=== PATIENT | female | born 1965 | race Caucasian/White ===

== ENCOUNTER 2017-05-23 16:43 | Emergency (ER) | payer OTHER ==
[2017-05-23 16:56] VITALS: TEMP 98.3; BMI 29.2
[2017-05-23] MEDS ORDERED: ASPIRIN 81 MG CHEWABLE TABLETS PO ONE (16:57)
--- NOTE | 2017-05-23 16:59 | PDOC ---
Rapid Medical Evaluation Time Seen by Provider: 05/23/17 16:46 Medical Evaluation: Allergies Allergy/AdvReac Type Severity Reaction Status Date / Time No Known Allergies Allergy Verified 08/23/15 11:33 05/23/17 16:51 I have performed a brief in-person evaluation of this patient. The patient presents with a chief complaint of: pain to left upper back x 2 months, today with chest pain 4 days with SOB, worse with respiration, no meds Pertinent physical exam findings: lungs ctab I have ordered the following: EKG, CXR, labs The patient will proceed to the ED for further evaluation.
--- NOTE | 2017-05-23 17:12 | PDOC ---
Attending Attestation - Resident Resident Name: Lukas Alvarez - ED Attending Attestation I have performed the following: I have examined & evaluated the patient, The case was reviewed & discussed with the resident, I agree w/resident's findings & plan, Exceptions are as noted - Medical Decision Making 05/23/17 17:12 I, Dr. Flor Swain, DO, attest that this document has been prepared under my direction and personally reviewed by me in its entirety. I further attest, that it accurately reflects all work, treatment, procedures and medical decision -making performed by me. 05/23/17 20:10 a/p: 51yo female with anterior chest wall pain and pain at rhomboid -also cocnerned for lesions to vagina - hx of herpes -will obtain labs, cxr, ekg -will do pelvic exam 05/23/17 20:10 elevated dimer will obtain cta chest <Flor Swain - Last Filed: 05/23/17 20:09> - HPI HPI: 05/23/17 21:32 Patient is a 51 year old female with a significant past medical history of hepatic infection genital region sores for 6 months, who presents to the ED with complaints of left shoulder pain that began 2 months ago. Patient reports experiencing chronic left shoulder pain that recently began to increase in intensity prompting her to come in to the ED for evaluation. She reports experiencing intermittent left chest pain that began 4 days ago that she states , is a pressured 8/10 pain. Patient reports experiencing dysuria, and urinary frequency. Denies fevers, chills. Denies nausea, vomiting. Denies contact with sick individuals, out of state travelling. Denies any other symptoms. Allergies: None Social history: No smoking. No alcohol. No illicit drugs. Surgical history: Hernia PMD: None - Physicial Exam PE: 05/23/17 21:33 GENERAL: Awake, alert, and fully oriented, in no acute distress HEAD: No signs of trauma EYES: PERRLA, EOMI, sclera anicteric, conjunctiva clear ENT: Auricles normal inspection, hearing grossly normal, nares patent, oropharynx clear without exudates. Moist mucosa NECK: Normal ROM, supple, no lymphadenopathy, JVD, or masses LUNGS: Breath sounds equal, clear to auscultation bilaterally. No wheezes, and no crackles HEART: +Anterior chest wall discomfort, reproduced with palpation. Regular rate and rhythm, normal S1 and S2, no murmurs, rubs or gallops MUSCULOSKELETAL: +Left rhomboid pin point pain. ABDOMEN: Soft, nontender, normoactive bowel sounds. No guarding, no rebound. No masses EXTREMITIES: +Full upper extremity ROM. Normal range of motion, no edema. No clubbing or cyanosis. No cords, erythema, or tenderness NEUROLOGICAL: Cranial nerves II through XII grossly intact. Normal speech, normal gait SKIN: Warm, Dry, normal turgor, no rashes or lesions noted. - Medical Decision Making 05/23/17 21:33 Documentation prepared by Eric Goldsmith, acting as medical field representative for Flor Swain DO, MD/. <Eric Goldsmith - Last Filed: 05/23/17 21:33> Heart Score/ECG Review - ECG Intrepretation Comment:: 05/23/17 17:35 sinus at 80, nl axis, nl interval, t wave flattening diffusely, no acute changes <Flor Swain - Last Filed: 05/23/17 20:09>
--- NOTE | 2017-05-23 17:20 | PDOC ---
History of Present Illness - General Chief Complaint: Chest Pain Stated Complaint: CHEST PAIN Time Seen by Provider: 05/23/17 16:46 - History of Present Illness Initial Comments: 05/23/17 17:32 Ms. Tee is a 51 yo female w/ no pmh of presents c/o a 2 month history of left shoulder pain and a 4 day history of intermittent 8/10 left chest pain. She reports that her pain initially came and went and felt like a pressure with episodes of sweating and palpitations but that yesterday it became constant. She is here today to get checked out. She also endorses dyrusria with increased frequency. The patient denies headache and dizziness. Denies fever, chills, nausea, vomit, diarrhea and constipation. Past History - Past Medical History Allergies/Adverse Reactions: Allergies Allergy/AdvReac Type Severity Reaction Status Date / Time No Known Allergies Allergy Verified 05/23/17 16:56 Home Medications: Ambulatory Orders Valacyclovir HCl [Valtrex] 500 mg PO QID #3 tablet 05/23/17 Anemia: No Asthma: No Cancer: No Cardiac Disorders: No CVA: No COPD: No CHF: No Dementia: No Diabetes: No GI Disorders: No Disorders: No HTN: No Hypercholesterolemia: No Liver Disease: No Seizures: No Thyroid Disease: No - Surgical History Abdominal Surgery: Yes (HERNIA: 2008) Appendectomy: No Cardiac Surgery: No Cholecystectomy: No Lung Surgery: No Neurologic Surgery: No Orthopedic Surgery: No - Immunization History Immunization Up to Date: Yes - Suicide/Smoking/Psychosocial Hx Smoking Status: No Smoking History: Never smoked Have you smoked in the past 12 months: No Number of Cigarettes Smoked Daily: 0 Hx Alcohol Use: No Drug/Substance Use Hx: No Substance Use Type: None Review of Systems - Review of Systems Comments:: 05/23/17 17:37 GENERAL/CONSTITUTIONAL: No fever or chills. No weakness. HEAD, EYES, EARS, NOSE AND THROAT: No change in vision. No ear pain or discharge. No sore throat. CARDIOVASCULAR: +Pain on right chest that has changed from intermittent to constant over the last 4 days. 8/10. Also pressure with palpitation episodes RESPIRATORY: No cough, wheezing, or hemoptysis. GASTROINTESTINAL: No nausea, vomiting, diarrhea or constipation. GENITOURINARY: +Dysuria with urinary frequency MUSCULOSKELETAL: No joint or muscle swelling or pain. No neck or back pain. SKIN: No rash NEUROLOGIC: No headache, vertigo, loss of consciousness, or change in strength/ sensation. ENDOCRINE: No increased thirst. No abnormal weight change HEMATOLOGIC/LYMPHATIC: No anemia, easy bleeding, or history of blood clots. ALLERGIC/IMMUNOLOGIC: No hives or skin allergy. *Physical Exam - Vital Signs Last Vital Signs Temp Pulse Resp BP Pulse Ox 98.3 F 88 20 121/86 100 05/23/17 16:51 05/23/17 16:51 05/23/17 16:51 05/23/17 16:51 05/23/17 16:51 - Physical Exam Comments: 05/23/17 17:40 GENERAL: Awake, alert, and fully oriented, in no acute distress HEAD: No signs of trauma, normocephalic, atraumatic EYES: PERRLA, EOMI, sclera anicteric, conjunctiva clear ENT: Auricles normal inspection, hearing grossly normal, nares patent, oropharynx clear without exudates. Moist mucosa NECK: Normal ROM, supple, no lymphadenopathy, JVD, or masses LUNGS: No distress, speaks full sentences, clear to auscultation bilaterally HEART: Regular rate and rhythm, normal S1 and S2, no murmurs, rubs or gallops, peripheral pulses normal and equal bilaterally. ABDOMEN: Soft, nontender, normoactive bowel sounds. No guarding, no rebound. No masses EXTREMITIES: +Left shoulder TTP. NEUROLOGICAL: Cranial nerves II through XII grossly intact. Normal speech, normal gait, no focal sensorimotor deficits SKIN: Warm, Dry, normal turgor, no rashes or lesions noted. : No CMT, no masses appreciated. Generalized pelvic tenderness noted. ED Treatment Course - LABORATORY CBC & Chemistry Diagram: 05/23/17 17:37 05/23/17 17:37 Medical Decision Making - Medical Decision Making 05/23/17 18:01 Ms. Tee is a 51 yo female who presents w/ symptoms concerning for acute cardiac process. Patient on further interview admitted to a pmh of herpes as well with active lesions. Reports that she has been out of medications for 7 months. 05/23/17 18:44 D-dimer positive. Chest CTA ordered for PE r/o. 05/23/17 20:25 No active herpetic lesions noted. Valtrex 500 given for recurrence. Will refer to [facility] for follow-up and continued treatment. Discharge pending CTA. 05/23/17 20:57 CTA negative for acute PE. Discharging. *DC/Admit/Observation/Transfer Diagnosis at time of Disposition: Herpes, Anterior chest wall pain, Musculoskeletal back pain - Discharge Dispostion Disposition: HOME - Prescriptions Prescriptions: Valacyclovir HCl [Valtrex] 500 mg PO QID #3 tablet - Referrals Referrals: Nivia López MD [Staff Physician] - - Patient Instructions Printed Discharge Instructions: DI for Atypical Chest Pain Additional Instructions: Follow-up with [facility] within 1-2 days for further evaluation. Return if any increase in pain, fever, or other concerning symptoms. - Post Discharge Activity
[2017-05-23 17:39] LABS: BASO % 1.1 % (0-2.0); EOS % 1.6 % (0-4.5); HEMATOCRIT 39.4 % (32.4-45.2); HEMOGLOBIN 13.8 GM/dL (10.7-15.3); LYMPH % 44.2 % (8-40); MCH 30.7 pg (25.7-33.7); MEAN CELL VOLUME 87.7 fl (80-96); MEAN PLT VOLUME 8.3 fl (7.5-11.1); MONO % 6.6 % (3.8-10.2); NEUT % 46.5 % (42.8-82.8); PLATELET COUNT 270 K/MM3 (134-434); RBC 4.49 M/mm3 (3.60-5.2); RDW 13.8 % (11.6-15.6); WHITE BLOOD COUNT 8.2 K/mm3 (4.0-10.0)
[2017-05-23 17:49] LABS: URINE APPEARANCE CLEAR; URINE BILIRUBIN NEGATIVE (NEGATIVE); URINE BLOOD NEGATIVE (NEGATIVE); URINE COLOR STRAW; URINE GLUCOSE (UA) NEGATIVE (NEGATIVE); URINE KETONE NEGATIVE (NEGATIVE); URINE LEUK ESTERASE NEGATIVE (NEGATIVE); URINE NITRITE NEGATIVE (NEGATIVE); URINE PROTEIN NEGATIVE (NEGATIVE); URINE UROBILINOGEN NEGATIVE mg/dL (0.2-1.0)
[2017-05-23 18:03] LABS: INR 1.05 (0.82-1.09); PROTHROMBIN TIME (PATIENT) 11.9 SEC (9.98-11.88)
[2017-05-23 18:13] LABS: ALBUMIN 3.8 g/dl (3.4-5.0); ANION GAP 11 (8-16); BILIRUBIN,TOTAL 0.4 mg/dL (0.2-1.0); BLOOD UREA NITROGEN 22 mg/dL (7-18); CALCIUM 8.8 mg/dL (8.5-10.1); CHLORIDE 108 mmol/L (98-107); CO2 20 mmol/L (21-32); CREATININE 1.1 mg/dL (0.55-1.02); GLUCOSE,RANDOM 135 mg/dL (74-106); SODIUM 139 mmol/L (136-145); TOT PROT 7.2 g/dl (6.4-8.2)
[2017-05-23 18:20] LABS: ALK PHOS 72 U/L (45-117); SGPT/ALT 22 U/L (12-78)
[2017-05-23 18:23] LABS: POTASSIUM 3.5 mmol/L (3.5-5.1); SGOT/AST 16 U/L (15-37)
[2017-05-23] MEDS ORDERED: SODIUM CHLORIDE 0.9% 1000 ML INFUS.BAG IV ONE (18:42)
[2017-05-23] MEDS ORDERED: SODIUM CHLORIDE 1,000 ML IV STA (18:42)
[2017-05-23 18:56] VITALS: BP 121/74; PULSE 80
[2017-05-23] MEDS ORDERED: valACYclovir HCL 500 MG TABLET (FP) PO ONE (20:23)
--- NOTE | 2017-05-24 09:11 | EKG ---
Test Reason : Blood Pressure : / mmHG Vent. Rate : 080 BPM Atrial Rate : 080 BPM P-R Int : 158 ms QRS Dur : 068 ms QT Int : 370 ms P-R-T Axes : 048 030 053 degrees QTc Int : 426 ms NORMAL SINUS RHYTHM NONSPECIFIC T WAVE ABNORMALITY ABNORMAL ECG WHEN COMPARED WITH ECG OF 20-JAN-2013 10:30, NO SIGNIFICANT CHANGE WAS FOUND Confirmed by RADHA CHUA MD ([id number]) on 05/24/2017 9:10:59 AM Referred By: Confirmed By:RADHA CHUA MD
== END 2017-05-23 21:24 | disposition home or self-care (01) ==
LOC: JER 16:43
PROC: 3E0337Z Introduction of Electrolytic and Water Balance Substance into Peripheral Vein, Percutaneous Approach (ICD-10-PCS; principal; 2017-05-23)
DX: R07.89 Other chest pain (principal); B00.9 Herpesviral infection, unspecified
CPT/HCPCS: 36415; 71046-TC; 71275-TC; 80053; 81003; 82550; 83735; 84484; 84703; 85025; 85379; 85610; 87086; 93005; 93010; 99284-25

== ENCOUNTER 2017-10-09 19:54 | Emergency (ER) | payer OTHER ==
[2017-10-09 20:09] VITALS: BP 106/67; PULSE 58; TEMP 98.4; BMI 30.2
--- NOTE | 2017-10-09 20:56 | PDOC ---
History of Present Illness - General Chief Complaint: Pain Stated Complaint: PAIN Time Seen by Provider: 10/09/17 20:51 - History of Present Illness Initial Comments: 51-year-old female presents for evaluation of right ankle pain 1 month after she banged it into a piece of furniture. No prior issues with the right ankle no comorbidities no ALLERGIES to medication. She has pain with ambulation. She points to the lateral aspect of the right ankle as the area of her discomfort. 10/09/17 20:54 Past History - Past Medical History Allergies/Adverse Reactions: Allergies Allergy/AdvReac Type Severity Reaction Status Date / Time No Known Allergies Allergy Verified 10/09/17 20:03 Home Medications: Ambulatory Orders NK [No Known Home Medication] 10/09/17 Anemia: No Asthma: No Cancer: No Cardiac Disorders: No CVA: No COPD: No CHF: No Dementia: No Diabetes: No GI Disorders: No Disorders: No HTN: No Hypercholesterolemia: No Liver Disease: No Seizures: No Thyroid Disease: No - Surgical History Abdominal Surgery: Yes (HERNIA: 2008) Appendectomy: No Cardiac Surgery: No Cholecystectomy: No Lung Surgery: No Neurologic Surgery: No Orthopedic Surgery: No - Immunization History Immunization Up to Date: Yes - Suicide/Smoking/Psychosocial Hx Smoking Status: No Smoking History: Never smoked Have you smoked in the past 12 months: No Number of Cigarettes Smoked Daily: 0 Hx Alcohol Use: No Drug/Substance Use Hx: No Substance Use Type: None Review of Systems - Review of Systems Musculoskeletal: Yes: Joint Pain All Other Systems: Reviewed and Negative *Physical Exam - Vital Signs Last Vital Signs Temp Pulse Resp BP Pulse Ox 98.4 F 58 L 18 106/67 100 10/09/17 20:03 10/09/17 20:03 10/09/17 20:03 10/09/17 20:03 10/09/17 20:03 - Physical Exam Comments: Right ankle skin color and temperature within normal limits there is no swelling mildly decreased range of motion in plantar and dorsiflexion tenderness about the lateral malleolus without instability no gross sensorimotor deficits she's neurovascularly intact. 10/09/17 20:55 ED Treatment Course - RADIOLOGY Radiology Studies Ordered: Category Date Time Status ANKLE-RIGHT [RAD] Stat Radiology 10/09/17 20:54 Ordered Medical Decision Making - Medical Decision Making This is most likely a right ankle contusion I will get x-rays to evaluate for fracture. 10/09/17 20:56 10/09/17 21:24 X-rays of the right ankle have been reviewed and show no evidence of fracture trauma or destructive process this is ankle contusion. She may follow-up with orthopedics for further evaluation and treatment options. *DC/Admit/Observation/Transfer Diagnosis at time of Disposition: Contusion, ankle - Discharge Dispostion Disposition: HOME Condition at time of disposition: Stable Decision to Admit order: No - Referrals Referrals: Gilbert Marcelo MD [Staff Physician] - - Patient Instructions Printed Discharge Instructions: Contusion Additional Instructions: He may return to the emergency room if your symptoms worsen or go unresolved prior to follow-up with orthopedic surgery within the next 1-2 days. He may follow-up with orthopedic surgery for further evaluation and treatment options. He may take Tylenol and Motrin for pain as needed. - Post Discharge Activity
== END 2017-10-09 22:17 | disposition home or self-care (01) ==
LOC: JERFT 19:54
DX: S90.01XA Contusion of right ankle, initial encounter (principal); W22.03XA Walked into furniture, initial encounter; Y93.89 Activity, other specified; Y92.038 Other place in apartment as the place of occurrence of the external cause; Y99.8 Other external cause status
CPT/HCPCS: 73610-TC-RT-FY; 99281-25

== ENCOUNTER 2018-02-25 19:32 | Emergency (ER) | payer OTHER ==
[2018-02-25 19:43] VITALS: BP 135/85; PULSE 86; TEMP 98.3; BMI 28.3
--- NOTE | 2018-02-25 19:44 | PDOC ---
Rapid Medical Evaluation Chief Complaint: Eye Problem Time Seen by Provider: 02/25/18 19:41 Medical Evaluation: Allergies Allergy/AdvReac Type Severity Reaction Status Date / Time No Known Allergies Allergy Verified 10/09/17 20:03 02/25/18 19:42 I have performed a brief in person evaluation of this patient. The patient presents with a chief complaint of: left eye erythema and pain x 1 day. Denies taking antipyretics or anticoagulants. Pertinent PE: Skin: Clear HEENT: pt has subconjunctival hemorrhage to the right inner canthus. Lungs: Clear Heart: RRR MS: Moves all extremities Neuro: Alert and oriented Psych: Appropriate affect The patient will proceed to: pt will go to [facility] for further evaluation. Discharge Disposition - Diagnosis Eye anomaly - Referrals - Patient Instructions - Post Discharge Activity
--- NOTE | 2018-02-25 21:46 | PDOC ---
History of Present Illness - General Chief Complaint: Eye Problem Stated Complaint: Eye Problem Time Seen by Provider: 02/25/18 19:41 - History of Present Illness Initial Comments: 02/25/18 21:44 52-year-old female without comorbidities presents for evaluation of right eye irritation times one day. She has no associated symptoms. Past History - Past Medical History Allergies/Adverse Reactions: Allergies Allergy/AdvReac Type Severity Reaction Status Date / Time No Known Allergies Allergy Verified 02/25/18 19:43 Home Medications: Ambulatory Orders NK [No Known Home Medication] 10/09/17 Anemia: No Asthma: No Cancer: No Cardiac Disorders: No CVA: No COPD: No CHF: No Dementia: No Diabetes: No GI Disorders: No Disorders: No HTN: No Hypercholesterolemia: No Liver Disease: No Seizures: No Thyroid Disease: No - Surgical History Abdominal Surgery: Yes (HERNIA: 2008) Appendectomy: No Cardiac Surgery: No Cholecystectomy: No Lung Surgery: No Neurologic Surgery: No Orthopedic Surgery: No - Immunization History Immunization Up to Date: Yes - Suicide/Smoking/Psychosocial Hx Smoking Status: No Smoking History: Never smoked Have you smoked in the past 12 months: No Number of Cigarettes Smoked Daily: 0 Hx Alcohol Use: No Drug/Substance Use Hx: No Substance Use Type: None Review of Systems - Review of Systems HEENTM: Yes: See HPI All Other Systems: Reviewed and Negative *Physical Exam - Vital Signs Last Vital Signs Temp Pulse Resp BP Pulse Ox 98.3 F 86 18 135/85 100 02/25/18 19:41 02/25/18 19:41 02/25/18 19:41 02/25/18 19:41 02/25/18 19:41 - Physical Exam Comments: HEAD: NC/AT EYES: Conjuntiva clear left eye, is a subconjunctival hemorrhage in the right eye.EOMI, PERRL Ears: Canals and TM's normal NOSE: No d/c THROAT: Moist mucous membrances, oral pharanx clear, uvula midline NECK: Supple without adenopathy CARDIAC: S1 S2 LUNGS: CTA Full and Equal breath sounds ABDOMEN: Soft NT ND MS: Full ROM in all joints without edema NEUROLOGIC: No gross sensory or motor deficits, NVID SKIN: Normal color and temperature no lesions or rashes 02/25/18 21:44 Medical Decision Making - Medical Decision Making Patient is not on any anticoagulation, subconjunctival hemorrhage will resolve on its own. I will give ophthalmology follow-up for reassurance and further evaluation and treatment options. 02/25/18 21:45 *DC/Admit/Observation/Transfer Diagnosis at time of Disposition: Subconjunctival bleed Diagnosis at time of Disposition: (Ruled Out): Eye anomaly - Discharge Dispostion Disposition: HOME Condition at time of disposition: Stable Decision to Admit order: No - Referrals Referrals: Tyler Wayne MD [Primary Care Provider] - Goldie Haynes MD [Staff Physician] - - Patient Instructions Printed Discharge Instructions: DI for Subconjunctival Hemorrhage Additional Instructions: Please follow up with ophthalmology in one to 2 days for further evaluation and treatment options return to the emergency room should symptoms worsen or go unresolved. There is nothing to do or drops to put in your right eye. - Post Discharge Activity
== END 2018-02-25 21:48 | disposition home or self-care (01) ==
LOC: JERFT 19:32
DX: H11.32 Conjunctival hemorrhage, left eye (principal)
CPT/HCPCS: 99281-25

== ENCOUNTER 2019-12-12 20:25 | Emergency (ER) | payer OTHER ==
[2019-12-12 20:34] VITALS: BP 139/84; PULSE 75; TEMP 97.3; BMI 33.2
[2019-12-12 20:54] LABS: BASO % 1.1 % (0-2.0); EOS % 1.3 % (0-4.5); HEMATOCRIT 39.8 % (32.4-45.2); HEMOGLOBIN 13.7 GM/dL (10.7-15.3); LYMPH % 45.5 % (8-40); MCHC 34.3 g/dl (32.0-36.0); MEAN CELL VOLUME 90.3 fl (80-96); MEAN PLT VOLUME 8.4 fl (7.5-11.1); MONO % 8.4 % (3.8-10.2); NEUT % 43.7 % (42.8-82.8); PLATELET COUNT 248 K/MM3 (134-434); WHITE BLOOD COUNT 8.5 K/mm3 (4.0-10.0)
--- NOTE | 2019-12-12 21:12 | PDOC ---
Rapid Medical Evaluation Chief Complaint: Headache Time Seen by Provider: 12/12/19 20:33 Medical Evaluation: Allergies Allergy/AdvReac Type Severity Reaction Status Date / Time No Known Allergies Allergy Verified 12/12/19 20:34 Vital Signs Temp Pulse Resp BP Pulse Ox 97.3 F L 75 18 139/84 99 12/12/19 20:28 12/12/19 20:28 12/12/19 20:28 12/12/19 20:28 12/12/19 20:28 12/12/19 20:36 I have performed a brief in-person evaluation of this patient. The patient presents with a chief complaint of:baugh and sob x months Pertinent physical exam findings:looks well, stable I have ordered the following:labs The patient will proceed to the ED for further evaluation. Discharge Disposition - Diagnosis SOB (shortness of breath) Headache Qualifiers: Headache type: unspecified Headache chronicity pattern: unspecified pattern Intractability: not intractable Qualified Code(s): R51 - Headache - Referrals - Patient Instructions - Post Discharge Activity
[2019-12-12 21:13] LABS: EPI CELLS 2 /uL (0-25.1); HYALINE CASTS 0 /uL (0-3.1); URINE APPEARANCE CLEAR; URINE BACTERIA 20 /uL (0-1359); URINE BILIRUBIN NEGATIVE (NEGATIVE); URINE COLOR YELLOW; URINE GLUCOSE (UA) NEGATIVE (NEGATIVE); URINE KETONE NEGATIVE (NEGATIVE); URINE LEUK ESTERASE NEGATIVE (NEGATIVE); URINE NITRITE NEGATIVE (NEGATIVE); URINE PROTEIN NEGATIVE (NEGATIVE); URINE RBC 11 /uL (0-23.9); URINE UROBILINOGEN 0.2 mg/dL (0.2-1.0); URINE WBC 5 /uL (0-25.8)
[2019-12-12 21:27] LABS: ALK PHOS 77 U/L (45-117); ANION GAP 7 MMOL/L (8-16); BILIRUBIN,TOTAL 0.3 mg/dL (0.2-1); BLOOD UREA NITROGEN 21.4 mg/dL (7-18); CALCIUM 9.5 mg/dL (8.5-10.1); CHLORIDE 110 mmol/L (98-107); CO2 23 mmol/L (21-32); CREATININE 1.1 mg/dL (0.55-1.3); GLUCOSE,RANDOM 116 mg/dL (74-106); POTASSIUM 4.2 mmol/L (3.5-5.1); SGOT/AST 20 U/L (15-37); SGPT/ALT 23 U/L (13-61); SODIUM 140 mmol/L (136-145); TOT PROT 7.5 g/dl (6.4-8.2)
--- NOTE | 2019-12-12 21:47 | PDOC ---
History of Present Illness - General Chief Complaint: Headache Stated Complaint: HEADACHE Time Seen by Provider: 12/12/19 20:33 Past History - Medical History Allergies/Adverse Reactions: Allergies Allergy/AdvReac Type Severity Reaction Status Date / Time No Known Allergies Allergy Verified 12/12/19 20:34 Home Medications: Ambulatory Orders NK [No Known Home Medication] 10/09/17 Anemia: No Asthma: No Cancer: No Cardiac Disorders: No CVA: No COPD: No CHF: No Dementia: No Diabetes: Yes (pre diabetes) GI Disorders: No Disorders: No HTN: No Hypercholesterolemia: No Liver Disease: No Seizures: No Thyroid Disease: No - Surgical History Abdominal Surgery: Yes (HERNIA: 2007) Appendectomy: No Cardiac Surgery: No Cholecystectomy: No Lung Surgery: No Neurologic Surgery: No Orthopedic Surgery: No - Immunization History Immunization Up to Date: Yes - Psycho-Social/Smoking History Smoking Status: No Smoking History: Never smoked Have you smoked in the past 12 months: No Number of Cigarettes Smoked Daily: 0 - Substance Abuse Hx (Audit-C & DAST Scrn) How often the patient has a drink containing alcohol: Never Score: In Men: 4 or > Positive; In Women: 3 or > Positive: 0 Screen Result (Pos requires Nsg. Audit-10AR): Negative *Physical Exam - Vital Signs Last Vital Signs Temp Pulse Resp BP Pulse Ox 97.3 F L 75 18 139/84 99 12/12/19 20:28 12/12/19 20:28 12/12/19 20:28 12/12/19 20:28 12/12/19 20:28 ED Treatment Course - LABORATORY CBC & Chemistry Diagram: 12/12/19 20:44 12/12/19 20:44 - ADDITIONAL ORDERS Additional order review: Laboratory Results 12/12/19 12/12/19 20:44 20:44 Sodium 140 Potassium 4.2 Chloride 110 H Carbon Dioxide 23 Anion Gap 7 L BUN 21.4 H Creatinine 1.1 Est GFR (CKD-EPI)AfAm 66.85 Est GFR (CKD-EPI)NonAf 57.68 Random Glucose 116 H Calcium 9.5 Total Bilirubin 0.3 AST 20 ALT 23 Alkaline Phosphatase 77 Total Protein 7.5 Albumin 4.0 Urine Color Yellow Urine Appearance Clear Urine pH 8.0 D Ur Specific [place] 1.005 L Urine Protein Negative Urine Glucose (UA) Negative Urine Ketones Negative Urine Blood 1+ H Urine Nitrite Negative Urine Bilirubin Negative Urine Urobilinogen 0.2 Ur Leukocyte Esterase Negative Urine WBC (Auto) 5 Urine RBC (Auto) 11 Urine Casts (Auto) 0 U Epithel Cells (Auto) 2 Urine Bacteria (Auto) 20 12/12/19 20:44 RBC 4.40 MCV 90.3 MCHC 34.3 RDW 13.0 MPV 8.4 Neutrophils % 43.7 Lymphocytes % 45.5 H Monocytes % 8.4 Eosinophils % 1.3 Basophils % 1.1 Medical Decision Making - Medical Decision Making 12/12/19 21:51 HPI: 53yo F no PMH presents from home c/o 3 weeks of worsening headache and chest pressure. Headache gradual onset whole head and back of neck worse at night, better in AM, worsening, not improved with tylenol x3 today. Intermittent chest pressure L-sided nonradiating pleuritic associated with SOB sometimes exertional sometimes at rest. Endorses 3wks dysuria, urinary frequency, intermittent nausea, intermittent blurry vision, fatigue and generalized weakness. Endorses chronic >1yr intermit tent LLQ pain. Denies sick contacts, travel, abdominal surgeries, D/C, vomiting, F/C, numbness/tingling, focal weakness, difficulty walking or talking, hx lung or heart problems, meds, FHx early CAD, alcohol, smoking, drugs, neck stiffness. ROS: Constitutional: Positive for fatigue and generalized weakness. Negative for chills, fever, diaphoresis. HENT: Negative for sore throat, rhinorrhea, congestion. Eyes: Positive for blurry vision. Negative for diplopia, photophobia, vision field loss. Respiratory: Positive for SOB. Negative for cough, and wheezing. Cardiovascular: Positive for chest pain. Negative for palpitations, and leg swelling. Gastrointestinal: Positive for abdominal pain, nausea. Negative for blood in stool, constipation, diarrhea, and vomiting. Genitourinary: Positive for dysuria, urinary frequency. Negative for flank pain, and hematuria. Musculoskeletal: Positive for back of neck pain. Negative for myalgias, back pain. Skin: Negative for rash. Neurological: Positive for headache. Negative for light-headedness, dizziness, vertigo, syncope, weakness, numbness. Psychiatric/Behavioral: Negative for behavioral problems and confusion. PE: Gen: Alert, NAD, comfortable-appearing. HEENT: PERRL, EOMI, MMM, NCAT. No conjunctival pallor. Sclera are non-icteric. Oropharynx is clear. CV: Regular rate and rhythm. No murmurs, rubs, or gallops. PULM: No resp distress. CTAB, no wheezes, rales, or rhonchi. ABD: soft, NT/ND, no rebound tenderness or guarding, no CVA tenderness. BACK: No TTP of c/t/l-spine. No step-offs or deformities. MSK: No bony deformities. 2+ pulses in all extremities. NEURO: AAOx3. PERRL. CN 2-12 intact. 5/5 strength in all extremities. Sensation to light touch intact in all extremities. No pronator drift. No dysmetria. No dysdiadochokinesia. No abnormal nystagmus. Normal gait. EXTREMITIES: No cyanosis. No clubbing. No edema. No calf tenderness. PSYCH: Normal mood and thought pattern. SKIN: Warm and dry. Normal capillary refill. No rashes. No jaundice. MDM: 53yo F no PMH presents from home c/o 3 weeks of worsening headache and chest pressure in addition to multiple other sx. Hemodynamically stable, afebrile, neurologically intact, benign PE. Ddx: c/w migraine vs tension headache. Due to multiple complaints, also consider pseudotumor cerebri, cluster headache, ICH, SAH, ACS/CT, arrhythmia, PNA, pancreatitis, gastritis, UTI, infection, metabolic derangement, anemia -EKG -CXR -CBC,CMP,Lipase,Cardiac profile,UA/UC -CTH -Pain management -Dispo: pending workup and reassessment, likely d/c home 12/12/19 23:23 CTH reviewed: No acute pathology -Toradol 12/12/19 23:44 Labs reviewed. No concerning findings. EKG reviewed: sinus bradycardia, 59bpm, normal axis, normal intervals, no TWIs, no ST elevations or depressions CXR reviewed: No acute pathology -Regln Pain improved No concern for emergent pathology at this time due to benign workup and exam and improvement of pain with toradol and reglan. Likely tension vs migraine headache. Needs further outpatient workup by PCP and specialists to evaluate for non-emergent etiologies of other sx. Will discharge home with PCP f/u. Return precautions given. Pt understands all discharge instructions and all questions were answered. Discharge - Discharge Information Problems reviewed: Yes Clinical Impression/Diagnosis: SOB (shortness of breath) Headache Qualifiers: Headache type: unspecified Headache chronicity pattern: unspecified pattern Intractability: not intractable Qualified Code(s): R51 - Headache Condition: Improved Disposition: HOME - Admission No - Follow up/Referral Referrals: Tyler Wayne MD [Primary Care Provider] - - Patient Discharge Instructions Patient Printed Discharge Instructions: DI for Headache Additional Instructions: Le humphrey visto en el departamento de emergencias por dolor de dino, falta de aliento y dolor en el pecho. Merida electrocardiograma, radiografa de trax, tomografa computarizada de la dino y anlisis de laboratorio, incluida la troponina (zeeshan enzima cardaca), no muestran signos de zeeshan afeccin emergente, idania hemorragia cerebral, ataque cardaco o neumona. Si siente dolor, puede ana Tylenol o Ibuprofeno idania se indica en la botella del medicamento, usha no exceda 3 g de Ibuprofeno o 4 g de Tylenol por da. Priyanka un seguimiento con merida mdico de atencin primaria dentro de 1 semana. Regrese al Departamento de emergencias de inmediato si experimenta dolor en el pecho, dificultad para respirar, desmayo, dificultad para caminar o hablar, o cualquier otro sntoma nuevo o que empeora. You have been seen in the Emergency Department for your headache, shortness of breath, adn chest pain. Your EKG, chest X-ray, head CT scan, and labs, including Troponin (a heart enzyme), show no signs concerning for an emergent condition such as a brain bleed or heart attack or pneumonia. If you experience pain, you can take Tylenol or Ibuprofen as directed on the medication bottle, but do not exceed 3g of Ibuprofen or 4g of Tylenol a day. Follow-up with your primary care doctor within 1 week. Return to the Emergency Department immediately if you experience chest pain, difficulty breathing, passing out, difficulty walking or talking, or any other new or worsening symptom. - Post Discharge Activity
[2019-12-12] MEDS ORDERED: SODIUM CHLORIDE 0.9% 500 ML INFUS.BAG IV ONE (21:54)
[2019-12-12] MEDS ORDERED: METOCLOPRAMIDE HCL INJECTION 10 MG/2 ML VIAL IVPUSH ONE (21:54)
[2019-12-12] MEDS ORDERED: METOCLOPRAMIDE HCL INJECTION 10 MG/2 ML VIAL ONE (22:04)
[2019-12-12 22:09] LABS: LIPASE 98 U/L (73-393)
--- NOTE | 2019-12-12 23:20 | PDOC ---
Documentation entered by Samantha Farley SCRIBE, acting as scribe for Kathleen Shoemaker MD. Kathleen Shoemaker MD: This documentation has been prepared by the Miguelito arriola Xhesika, SCRIBE, under my direction and personally reviewed by me in its entirety. I confirm that the documentation accurately reflects all work, treatment, procedures, and medical decision making performed by me. Attending Attestation - Resident Resident Name: Ana Fall - HPI HPI: 12/12/19 21:22 The patient is a 53y/o F with no PMH of who presents to the ED with headache and chest pressure [id number]. Pt states her headache is worse at night and better in the mornings. Pt states she has taken Tylenol for head PYLE with no improvement of symptoms. Pt reports L sided chest pressure, associated with SOB intermittently, worse with exertion. Pt also reports 3 weeks of dysuria, urinary frequency, intermittent nausea, intermittent blurry vision, fatigue and generalized weakness. Allergies: NKDA PCP: skip Newby - Physicial Exam PE: 12/12/19 23:16 Agree with resident exam. patient is alert and oriented and in no acute distress. HEEENT: normocephalic, atraumatic. CV: RRR no m/r/g Pulm: CTA b/l. Abdomen:soft, non tender, non distended, no guarding or rebound. 12/12/19 23:16 - Medical Decision Making 12/12/19 23:19 Pt presents to the ED with multiple complaints, the most significant of which is a diffuse headache that has been persistent for three weeks. neurologically intact. Will check CT head to rule out masses. Will check labs. PYLE greatly improved after reglan. Will likely discharge home if CT is normal. Discharge - Discharge Information Problems reviewed: Yes Clinical Impression/Diagnosis: SOB (shortness of breath) Headache Qualifiers: Headache type: unspecified Headache chronicity pattern: unspecified pattern Intractability: not intractable Qualified Code(s): R51 - Headache Condition: Improved Disposition: HOME - Follow up/Referral Referrals: Skip Wayne MD [Primary Care Provider] - - Patient Discharge Instructions Patient Printed Discharge Instructions: DI for Headache Additional Instructions: Le humphrey visto en el departamento de emergencias por dolor de dino, falta de a liento y dolor en el pecho. Gar electrocardiograma, radiografa de trax, tomografa computarizada de la dino y anlisis de laboratorio, incluida la troponina (zeeshan enzima cardaca), no muestran signos de zeeshan afeccin emergente, idania hemorragia cerebral, ataque cardaco o neumona. Si siente dolor, puede ana Tylenol o Ibuprofeno idania se indica en la botella del medicamento, usha no exceda 3 g de Ibuprofeno o 4 g de Tylenol por da. Priyanka un seguimiento con gar mdico de atencin primaria dentro de 1 semana. Regrese al Departamento de emergencias de inmediato si experimenta dolor en el pecho, dificultad para respirar, desmayo, dificultad para caminar o hablar, o cualquier otro sntoma nuevo o que empeora. You have been seen in the Emergency Department for your headache, shortness of breath, adn chest pain. Your EKG, chest X-ray, head CT scan, and labs, including Troponin (a heart enzyme), show no signs concerning for an emergent condition such as a brain bleed or heart attack or pneumonia. If you experience pain, you can take Tylenol or Ibuprofen as directed on the medication bottle, but do not exceed 3g of Ibuprofen or 4g of Tylenol a day. Follow-up with your primary care doctor within 1 week. Return to the Emergency Department immediately if you experience chest pain, difficulty breathing, passing out, difficulty walking or talking, or any other new or worsening symptom. - Post Discharge Activity
[2019-12-12] MEDS ORDERED: KETOROLAC TROMETHAMINE 15 MG/ML VIAL IVPUSH ONE (23:22)
[2019-12-12] MEDS ORDERED: KETOROLAC TROMETHAMINE 15 MG/ML VIAL ONE (23:33)
--- NOTE | 2019-12-15 10:14 | EKG ---
Test Reason : Blood Pressure : / mmHG Vent. Rate : 059 BPM Atrial Rate : 059 BPM P-R Int : 172 ms QRS Dur : 076 ms QT Int : 446 ms P-R-T Axes : 048 013 026 degrees QTc Int : 441 ms SINUS BRADYCARDIA OTHERWISE NORMAL ECG WHEN COMPARED WITH ECG OF 23-MAY-2017 16:50, NO SIGNIFICANT CHANGE WAS FOUND Confirmed by Kiko Adorno ([id number]) on 12/15/2019 10:14:01 AM Referred By: Confirmed By:Kiko Adorno
== END 2019-12-12 23:49 | disposition home or self-care (01) ==
LOC: JER 20:25
PROC: 3E0333Z Introduction of Anti-inflammatory into Peripheral Vein, Percutaneous Approach (ICD-10-PCS; principal; 2019-12-12)
PROC: 3E033GC Introduction of Other Therapeutic Substance into Peripheral Vein, Percutaneous Approach (ICD-10-PCS; 2019-12-12)
DX: R51 Headache (principal)
CPT/HCPCS: 36415; 70450-TC; 71045-TC-FY; 71046-TC-FY; 80053; 81003; 82550; 82553; 83690; 84484; 85025; 93005; 93010; 99285-25

== ENCOUNTER 2023-07-12 11:04 | Emergency (ER) | payer OTHER ==
[2023-07-12 11:14] VITALS: BP 105/70; PULSE 89; RESP 18; TEMP 98.5; BMI 29.8
[2023-07-12] MEDS ORDERED: ACETAMINOPHEN 325 MG TABLET (FP) ONE (12:06)
[2023-07-12] MEDS: ACETAMINOPHEN 325 MG TABLET (FP) PO ONE (12:09)
[2023-07-12 13:03] LABS: BASO % 0.7 % (0-2.0); HEMATOCRIT 38.9 % (32.4-45.2); HEMOGLOBIN 13.4 GM/dL (10.7-15.3); LYMPH % 56.4 % (8-40); MCH 30.9 pg (25.7-33.7); MCHC 34.5 g/dl (32.0-36.0); MEAN CELL VOLUME 89.8 fl (80-96); MEAN PLT VOLUME 8.1 fl (7.5-11.1); MONO % 16.2 % (3.8-10.2); NEUT % 25.7 % (42.8-82.8); PLATELET COUNT 237 10^3/uL (134-434); RBC 4.33 M/mm3 (3.60-5.2); RDW 13.5 % (11.6-15.6); WHITE BLOOD COUNT 6.7 K/mm3 (4.0-10.0)
[2023-07-12 14:18] LABS: ALBUMIN 3.8 g/dl (3.4-5.0); BILIRUBIN,TOTAL 0.5 mg/dL (0.2-1); BLOOD UREA NITROGEN 14.9 mg/dL (7-18); CALCIUM 8.9 mg/dL (8.5-10.1); CREATININE 1.2 mg/dL (0.55-1.3); POTASSIUM 4.2 mmol/L (3.5-5.1); TOT PROT 7.5 g/dl (6.4-8.2)
[2023-07-12 14:24] LABS: EPI CELLS 13 /uL (0-25.1); HYALINE CASTS 0 /uL (0-3.1); URINE APPEARANCE CLEAR; URINE BACTERIA 103 /uL (0-1359); URINE BILIRUBIN NEGATIVE (NEGATIVE); URINE COLOR YELLOW; URINE GLUCOSE (UA) NEGATIVE (NEGATIVE); URINE KETONE NEGATIVE (NEGATIVE); URINE LEUK ESTERASE TRACE (NEGATIVE); URINE NITRITE NEGATIVE (NEGATIVE); URINE PROTEIN NEGATIVE (NEGATIVE); URINE RBC 68 /uL (0-23.9); URINE UROBILINOGEN 0.2 mg/dL (0.2-1.0); URINE WBC 24 /uL (0-25.8)
== END 2023-07-12 15:47 | disposition home or self-care (01) ==
LOC: JER 11:04
DX: R05.9 Cough, unspecified (principal); R50.9 Fever, unspecified; M79.10 Myalgia, unspecified site; M54.9 Dorsalgia, unspecified; R09.81 Nasal congestion; R06.02 Shortness of breath; R30.0 Dysuria; R10.30 Lower abdominal pain, unspecified; J10.1 Influenza due to other identified influenza virus with other respiratory manifestations; Z20.822 Contact with and (suspected) exposure to COVID-19
CPT/HCPCS: 0241U-QW; 36415; 71046-TC-FY; 80053; 81003; 83690; 84484; 85025; 93005; 93010; 99285-25